=== PATIENT | male | born 1950 | race Caucasian/White ===

== ENCOUNTER 2018-11-07 07:32 | Day surgery (SDC) | payer BC, OTHER ==
[~2018-11-07] VITALS: Ht 170.2 cm; Wt 65.8 kg
[~2018-11-07 07:32] MED LIST: CEFAZOLIN SOD 1 GM in D5W 50 ML IV ONE
[2018-11-07] MEDS ORDERED: DEXAMETHASONE SOD PHOSPHATE 4 MG/ML VIAL IVP ONE (09:25)
[2018-11-07] MEDS ORDERED: MIDAZOLAM HCL 5 MG/5 ML VIAL IVP ONE (09:25)
[2018-11-07] MEDS ORDERED: KETOROLAC TROMETHAMINE 15 MG VIAL IVP ONE (09:25)
[2018-11-07] MEDS ORDERED: PROPOFOL 200MG/ 20ML VIAL (DIPRIVAN) IV ONE (09:25)
[2018-11-07] MEDS ORDERED: LR 1,000 ML IV.SOLN IV ONE (09:25)
[2018-11-07] MEDS ORDERED: fentaNYL CITRATE 250 MCG/5 ML AMP IV ONE (09:25)
[2018-11-07] MEDS ORDERED: ONDANSETRON HCL 4 MG/2 ML VIAL IVP ONE (09:25)
[2018-11-07] MEDS ORDERED: BUPIVACAINE /PF 0.25% 30 ML VIAL INJ ONE (09:25)
[2018-11-07] MEDS ORDERED: ROCURONIUM BROMIDE 10 MG/ML (ZEMURON) IV ONE (09:25)
[2018-11-07] MEDS ORDERED: SEVOFLURANE 15 MIN GAS INH ONE (09:25)
[2018-11-07] MEDS ORDERED: POLYMYXIN 500,000/BACIT.10,000 UNITS in NS IRR 1 L IR ONE (09:34)
[2018-11-07] MEDS ORDERED: LR 1,000 ML IV SCH (10:20)
[2018-11-07] MEDS ORDERED: HYDROmorphone 2 MG/ML VIAL IVP PRN ×2 (10:30)
[2018-11-07] MEDS ORDERED: HYDROmorphone 1 MG INJ. 1 MG/ML AMPUL IVP PRN ×2 (10:30→11:15)
[2018-11-07] MEDS ORDERED: MEPERIDINE HCL/PF 25 MG/ML DISP.SYRIN IVP PRN (10:30)
[2018-11-07] MEDS ORDERED: D5/0.45 NS 1,000 ML IV SCH (11:08)
[2018-11-07] MEDS ORDERED: HYDROcodone/ACETAMIN 5-325 MG TAB (NORCO/ VICODIN) PO PRN ×2 (11:15)
[2018-11-07 12:55] VITALS: BP_SYST 114
== END 2018-11-07 14:15 | disposition home or self-care (01) ==
LOC: SMU 07:32 → SDS 07:32
PROVIDERS: ATTEND Colon & Rectal Surgery
DX: K40.90 Unilateral inguinal hernia, without obstruction or gangrene, not specified as recurrent (principal); K42.0 Umbilical hernia with obstruction, without gangrene; G25.81 Restless legs syndrome; Z79.899 Other long term (current) drug therapy; Z98.890 Other specified postprocedural states; I10 Essential (primary) hypertension; Z86.73 Personal history of transient ischemic attack (TIA), and cerebral infarction without residual deficits; K21.9 Gastro-esophageal reflux disease without esophagitis; Z87.891 Personal history of nicotine dependence; N40.0 Benign prostatic hyperplasia without lower urinary tract symptoms
CPT/HCPCS: 49505; 49587; 88302; C1781 ×2; J0690; J1100; J1885; J2250; J2405; J2704; J3010; J3490; J7060; J7120